=== PATIENT | female | born 1950 | race Two or more races ===

== ENCOUNTER → 2023-09-14 15:52 | Outpatient (REF) | payer MEDICARE, BC, SELFPAY | LOC: HWWDC 15:52 | PROVIDERS: ATTENDING PHYSICIAN Family Medicine | DX: R92.8 Other abnormal and inconclusive findings on diagnostic imaging of breast (principal) | CPT/HCPCS: 77061; 77065 ==

== ENCOUNTER → 2024-03-07 10:59 | Outpatient (REF) | payer MEDICARE, BC, SELFPAY | LOC: HWWDC 10:59 | PROVIDERS: ATTENDING PHYSICIAN Family Medicine; REFERRING PHYSICIAN Internal Medicine Rheumatology | DX: Z12.31 Encounter for screening mammogram for malignant neoplasm of breast (principal); M81.0 Age-related osteoporosis without current pathological fracture | CPT/HCPCS: 77063; 77067; 77080 ==